=== PATIENT | female | born 1965 | race Caucasian/White ===

== ENCOUNTER 2017-11-18 16:05 | Inpatient (IN) | payer BC ==
[~2017-11-18] VITALS: Ht 170.2 cm; Wt 95.9 kg
[2017-11-18 16:15] VITALS: Ht 170.2 cm; Wt 95.9 kg
[2017-11-18 17:19] LABS: BASOPHIL % 0.3 % (0-2); PLATELET COUNT 298 x10^3mcL (130-400); RED CELL DISTRIBUTION WIDTH 12.4 % (11.5-14.5)
[2017-11-18 17:26] LABS: CARBON DIOXIDE 26.6 mmol/L (21-32); CHLORIDE SERUM 102 mmol/L (98-107); GFR1 > 60 mL/min; GLUCOSE SERUM 132 mg/dL (74-106); POTASSIUM SERUM 3.5 mmol/L (3.5-5.1); SODIUM SERUM 137 mmol/L (136-145)
[2017-11-18 17:31] LABS: ALBUMIN 3.9 g/dL (3.4-5.0); ALKALINE PHOSPHATASE 57 U/L (46-116); ALT/SGPT 39 U/L (14-59); AST/SGOT 31 U/L (15-37); BILIRUBIN TOTAL 0.25 mg/dL (0.20-1.00); TOTAL PROTEIN, SERUM 7.7 g/dL (6.4-8.2)
[2017-11-18 18:43] LABS: AMPHETAMINE QUAL UR NONE DETECTED
[2017-11-18 19:29] VITALS: BP 152/96
[2017-11-18 19:49] LABS: MAGNESIUM 1.8 mg/dL (1.8-2.4); PHOSPHOROUS 3.6 mg/dL (2.5-4.9)
[2017-11-18 19:58] LABS: T3 TOTAL 1.83 ng/mL
[2017-11-18 20:20] LABS: FREE T4 0.71 ng/dL (0.76-1.46); FREE THYROXINE INDEX 1.7 ug/dL (1.4-4.5); T4(THYROXINE) 5.7 ug/dL (4.7-13.3)
[2017-11-19 04:45] VITALS: BP 124/78
[2017-11-19 06:39] LABS: BASOPHIL % 0.6 % (0-2); PLATELET COUNT 263 x10^3mcL (130-400); RED CELL DISTRIBUTION WIDTH 12.8 % (11.5-14.5)
[2017-11-19 07:03] LABS: CALCIUM 8.6 mg/dL (8.5-10.1); CARBON DIOXIDE 26.5 mmol/L (21-32); CHLORIDE SERUM 106 mmol/L (98-107); CHOLESTEROL 198 mg/dL (<200); CHOLESTEROL/HDL RATIO 7.9; CREATININE SERUM 0.9 mg/dL (0.6-1.0); GFR1 > 60 mL/min; GLUCOSE SERUM 114 mg/dL (74-106); HDL CHOLESTEROL 25 mg/dL (40-60); POTASSIUM SERUM 4.2 mmol/L (3.5-5.1); SODIUM SERUM 143 mmol/L (136-145); TRIGLYCERIDES 275 mg/dL (<150)
[2017-11-19 09:40] VITALS: BP 141/88
[2017-11-19 10:25] VITALS: BP 141/88
[2017-11-20 21:55] LABS: microscopic required? NO
[2017-11-20 21:57] LABS: urine erythrocyte NEGATIVE (NEGATIVE)
== END 2017-11-19 10:55 | disposition home or self-care (01) | DRG 79 ==
LOC: ED 16:05 → DU 18:48
PROVIDERS: Emergency Medicine; Family Medicine
DX: I67.4 Hypertensive encephalopathy (principal); G43.909 Migraine, unspecified, not intractable, without status migrainosus; E66.01 Morbid (severe) obesity due to excess calories; E02 Subclinical iodine-deficiency hypothyroidism; Z68.34 Body mass index [BMI] 34.0-34.9, adult
CPT/HCPCS: 82375; 83880; 84439; G0480; J7030; Q0092